=== PATIENT | female | born 1945 | race Caucasian/White ===

== ENCOUNTER 2023-01-20 13:31 | Emergency (ER) | payer MEDICARE, SELFPAY ==
[2023-01-20 13:37] VITALS: BP 131/78; PULSE 77; RESP 18; TEMP 36.8; O2SAT 97
--- NOTE | 2023-01-20 13:39 | ED.GENADUL_ITS ---
Discharge Plan Disposition Patient Disposition: Home Discharge Details Clinical Impression: Acute pain of left knee Primary Care Provider: Unknown,Unknown ED Provider: Jamie Perdue Home Meds and New Rx's Prescriptions: Continued gabapentin PO TID omeprazole 10 mg capsule,delayed release(DR/EC) 10 mg PO DAILY amlodipine 10 mg tablet 10 mg PO DAILY Discharge Instructions Instructions: Knee Pain (ED) Additional Instructions: You were seen in the emergency department for your knee pain. Your x-ray showed no sign of any fractures. Please wear this knee immobilizer. Please return to the emergency department if you develop worsening knee pain swelling or any fevers. For your pain please take medications as follows: 1. Take acetaminophen (Tylenol), 1,000 mg (two 500 mg tabs) every 6 hours 2. Take ibuprofen (Advil), 200 mg every 8 hours. HPI General Date/Time Provider Initiated Documentation: 01/20/23 13:39 . HPI Narrative: MDM This is an overall very well-appearing normothermic and not tachycardic 77-year-old female with left knee pain status post forceful step on left lower extremity yesterday now with left knee pain concerning for ligamentous injury versus pathological fracture. No head strike to suggest benefit from CT head. No preceding chest pain nausea nor vomiting so doubt ACS. No shortness of breath to suggest PE. No history of syncope so we will defer syncope evaluation. Patient is able to straight leg raise so I am not concerned for quadriceps tendon rupture. No hip pain to suggest pelvic nor hip fracture. Patient has been ambulating with minimal pain since her injury. If her x-ray is negative for any acute osseous abnormalities anticipate placing patient in a knee immobilizer making her weightbearing as tolerated with outpatient orthopedic primary care follow-up. No pain out of proportion to suggest necrotizing soft tissue infection. Patient has taken 1 g of acetaminophen 1 hour prior to arrival. Given age will defer NSAIDs. 3:08 PM Patient does have degenerative changes and a small joint effusion however no fractures. Patient and I discussed return to the emergency department for worsening pain fevers or any significant joint swelling. Patient understood her return indications and we will empiric trial of expectant outpatient management. Patient was given a copy of her x-rays on disc. I advised primary care follow- up next week. I advised that if her symptoms did not improve that she may benefit from the possibility of an MRI but will defer this decision to her primary care provider upon reassessment. Chronic conditions affecting the care of the patient: Chronic pain History obtained from an outside historian: Patient's daughter External record review: No [facility] [place] [facility] record Medications: N/A Social determinants of health affecting disposition: N/A Management discussed with: N/A Treatment/interventions considered: N/A Response to therapies provided: N/A HPI This is a 77-year-old female with history of chronic pain arrived to the emergency department with her daughter in the setting of left knee pain. Patient reports that yesterday evening she was walking down some stairs. She reported that she overstepped, missing the bottom step and forcefully landing on her left foot. She immediately felt a pain in the back of her left knee. She never had any surgeries in the past to her left knee. She reported worsening pain overnight which caused her to only sleep for approximately 1 hour. She took her home gabapentin along with 1 g of acetaminophen just prior to arrival. She denies routine tobacco, ethanol, and illicits. She did not fall down but was able to catch herself on a door frame. She did not lose consciousness nor strike her head. She had no preceding chest pain nausea vomiting nor any shortness of breath. Exam General: Well-appearing in no acute distress speaking in complete sentences. Head: Normocephalic, atraumatic. Eye: Extraocular eye movements intact. No conjunctival injection. No scleral icterus. Ear, nose, mouth, throat: Grossly normal inspection. Normal voice, handling secretions normally. Neck: Trachea midline. Cardiovascular: Well-perfused distal extremities. Respiratory: Nonlabored respiration. Gastrointestinal: Nondistended abdomen. Musculoskeletal: Left lower extremity with no obvious deformities. Left foot warm and well-perfused with 2+ PT and DP pulses. Patient has left lateral knee tenderness at the joint line. No obvious deformity. Patient is able to straight leg raise. No obvious laxity on valgus or varus stress testing. Negative anterior and posterior drawer. No rash to knee. No erythema to the knee. Skin: Normal for age and race, grossly normal temperature and turgor. No acute rash. Neurologic: Alert and appropriate, no apparent acute deficits. Psychiatric: Mood and manner are appropriate. Grooming and personal hygiene are appropriate. Related Data Home Medications Medication Instructions Recorded Confirmed amlodipine 10 mg tablet 10 mg PO DAILY 01/20/23 01/20/23 gabapentin PO TID 01/20/23 omeprazole 10 mg capsule,delayed 10 mg PO DAILY 01/20/23 01/20/23 release Allergies Allergy/AdvReac Type Severity Reaction Status Date / Time No Known Allergies Allergy Unverified 01/20/23 13:40 PFSH All Active Problems (Updated 01/20/23 @ 15:24 by Jamie Perdue MD) Acute pain of left knee (Acute) Social History Smoking/Tobacco Use Status: Never Smoking risk assessment performed?: Yes Alcohol Intake: never Drug use: Never
--- NOTE | 2023-01-20 14:00 | DI.RAD_ITS ---
Exam(s) XR KNEE LT 3V AP,LAT,QUAN EXAM: XR KNEE LT 3V AP,LAT,QUAN CLINICAL HISTORY: Left knee pain. TECHNIQUE: 2D digital imaging was performed of the left knee. Three images were obtained. AP, late ral and PA tunnel views were obtained. COMPARISON: No exams were available for comparison FINDINGS: BONES: No acute fracture is present. No bony destructive lesion is seen. There is an enthesophyte at the superior patella. JOINTS: The knee is normally aligned. There are mild degenerative changes seen in the knee. The find ings include all 3 joint compartments with varying degrees of joint space narrowing and osteophytes p resent. There is a small joint effusion. SOFT TISSUE: Normal. IMPRESSION: 1. No acute fracture or dislocation. 2. Degenerative changes in the knee. DATA REPOSITORY: RADIATION DOSE DELIVERED:
--- NOTE | 2023-01-20 14:57 | DI.VRAD_ITS ---
PROCEDURE INFORMATION: Exam: XR Left Knee Exam date and time: 01/20/2023 2:17 PM Age: 77 years old Clinical indication: Patient HX: Left knee pain TECHNIQUE: Imaging protocol: Radiologic exam of the left knee. Views: 3 views. COMPARISON: No relevant prior studies available. FINDINGS: Bones/joints: There are tricompartmental degenerative changes of the knee, greatest of the patellofemoral compartment. . Subchondral cystic changes in the medial femoral condyle. Small joint effusion. No fracture. Soft tissues: Normal. IMPRESSION: Arthropathy. Dictated and Authenticated by: César Ferrell MD. Ordering:CASANDRA Ayala MD
== END 2023-01-20 15:53 | disposition home or self-care (01) ==
PROVIDERS: Emergency Provider Emergency Medicine
DX: M25.562 Pain in left knee (principal); M25.462 Effusion, left knee
CPT/HCPCS: 73562; 99283

== ENCOUNTER → 2024-11-12 10:27 | Outpatient (BNVA) | payer MEDICARE, SELFPAY | PROVIDERS: Visit Provider Psychiatry & Neurology Neurology | DX: G61.0 Guillain-Barre syndrome (principal); E61.1 Iron deficiency; R20.0 Anesthesia of skin; R20.2 Paresthesia of skin; I10 Essential (primary) hypertension | CPT/HCPCS: 99215; G2212 ==